=== PATIENT | male | born 1965 ===

== ENCOUNTER 2021-03-16 15:29 | Emergency (ER) | payer MEDICAID ==
[~2021-03-16] VITALS: Ht 185.4 cm; Wt 142.8 kg
[2021-03-16] MEDS ORDERED: LIDOCAINE-MPF 1%, 2ML ONE (16:23)
[2021-03-16] MEDS ORDERED: SULFAMETH./TRIMETHOPRIM DS 800MG/160MG TABLET ONE (17:17)
[2021-03-16] MEDS ORDERED: CEPHALEXIN 500 MG CAPSULE ONE (17:17)
[2021-03-16 17:23] VITALS: BP 128/82
[2021-03-16] MEDS ORDERED: SULFAMETH./TRIMETHOPRIM DS 800MG/160MG TABLET PO ONE (17:30)
[2021-03-16] MEDS ORDERED: CEPHALEXIN 500 MG CAPSULE PO ONE (17:30)
[2021-03-16] MEDS ORDERED: LIDOCAINE-MPF 1%, 5ML INFIL ONE (17:30)
--- NOTE | 2021-03-16 17:36 | NUR ---
PT REC'VD DISCHARGE EDUCATION AND INSTRUCITONS. PT HAD NO FURTHER INSTRUCTIONS. PT AMBUALTED TO DC AREA, STEADY GAIT.
== END 2021-03-16 18:02 | disposition home or self-care (01) ==
LOC: ED 16:00
DX: L02.411 Cutaneous abscess of right axilla (principal)
CPT/HCPCS: 10060; 82962; 99283

== ENCOUNTER 2021-03-18 15:37 | Emergency (ER) | payer MEDICAID ==
[~2021-03-18] VITALS: Ht 185.4 cm; Wt 145.2 kg
[2021-03-18 15:40] VITALS: BP 155/75
[2021-03-18] MEDS ORDERED: CEPHALEXIN 500 MG CAPSULE PO ONE (16:00)
[2021-03-18] MEDS ORDERED: SULFAMETH./TRIMETHOPRIM DS 800MG/160MG TABLET PO ONE (16:00)
[2021-03-18] MEDS ORDERED: CEPHALEXIN 500 MG CAPSULE ONE (16:04)
[2021-03-18] MEDS ORDERED: SULFAMETH./TRIMETHOPRIM DS 800MG/160MG TABLET ONE (16:04)
--- NOTE | 2021-03-18 16:06 | NUR ---
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
== END 2021-03-18 16:24 | disposition home or self-care (01) ==
LOC: ED 16:12
DX: Z48.01 Encounter for change or removal of surgical wound dressing (principal)
CPT/HCPCS: 99283